=== PATIENT | male | born 1965 | race Caucasian/White ===

== ENCOUNTER → 2019-12-26 | Outpatient (CLI) | payer OTHER ==
[~2019-12-26] MED LIST: CETI10TA16 PO; OMEP20TA8 PO; OXYC1TAB15 PO
== END | disposition home or self-care (01) ==
LOC: LAB 13:51
PROVIDERS: ATTEND Surgery
DX: Z01.812 Encounter for preprocedural laboratory examination (principal); Z20.828 Contact with and (suspected) exposure to other viral communicable diseases; K42.9 Umbilical hernia without obstruction or gangrene
CPT/HCPCS: U0003-CS

== ENCOUNTER 2020-01-01 06:06 | Day surgery (SDC) | payer OTHER ==
[~2020-01-01] VITALS: Ht 190.5 cm; Wt 115.0 kg
[~2020-01-01 06:06] MED LIST changes: +ACETAMINOPHEN 500 MG TABLET PO PRN; -CETI10TA16 PO; -OMEP20TA8 PO; -OXYC1TAB15 PO
[2020-01-01] MEDS ORDERED: OMEP20TA8 PO (06:39)
[2020-01-01] MEDS ORDERED: CETI10TA16 PO (06:39)
[2020-01-01] MEDS ORDERED: LIDOCAINE 1% PF 2 ML VIAL. ID PRN (07:00)
[2020-01-01] MEDS ORDERED: MORPHINE SULFATE 2 MG/ML VIAL. IV PRN (07:00)
[2020-01-01] MEDS ORDERED: PROCHLORPERAZINE 10 MG/2 ML VIAL. IV PRN (07:00)
[2020-01-01] MEDS ORDERED: ONDANSETRON PF 4 MG/2 ML VIAL. IV PRN (07:00)
[2020-01-01] MEDS ORDERED: HYDROmorphone 2 MG/ML VIAL IV PRN (07:00)
[2020-01-01] MEDS ORDERED: fentaNYL PF VIAL 100 MCG/2 ML VIAL IV PRN ×2 (07:00)
[2020-01-01] MEDS ORDERED: IV RINGERS,LACTATED 1000ML 1,000 ML IV SCH (07:00)
[2020-01-01] MEDS ORDERED: ONDANSETRON PF 4 MG/2 ML VIAL. ONE (07:03)
[2020-01-01] MEDS ORDERED: LIDOCAINE 2% PF 5 ML VIAL. ONE (07:03)
[2020-01-01] MEDS ORDERED: fentaNYL PF VIAL 100 MCG/2 ML VIAL ONE ×2 (07:03→08:39)
[2020-01-01] MEDS ORDERED: DEXAMETHASONE SOD PHOS 20 MG/5 ML VIAL. ONE (07:03)
[2020-01-01] MEDS ORDERED: SUCCINYLCHOLINE 200 MG/10 ML VIAL. ONE (07:03)
[2020-01-01] MEDS ORDERED: ROCURONIUM 50 MG/5 ML VIAL. ONE (07:03)
[2020-01-01] MEDS ORDERED: PROPOFOL 10 MG/ML (20ML) VIAL. IV ONE (07:03)
[2020-01-01] MEDS ORDERED: MIDAZOLAM HCL/PF 2 MG/2 ML VIAL. ONE (07:04)
[2020-01-01] MEDS ORDERED: MINERAL OIL for SURGERY 10 ML VIAL. MC ONE (07:11)
[2020-01-01] MEDS ORDERED: BUPIVACAINE-EPI 0.5%-1:200000 MPF 30 ML VIAL. ONE (07:11)
[2020-01-01] MEDS ORDERED: GLYCOPYRROLATE 1 MG/5 ML VIAL. ONE (07:59)
[2020-01-01] MEDS ORDERED: KETOROLAC 30 MG/ML VIAL. ONE (08:18)
[2020-01-01] MEDS ORDERED: NEOSTIGMINE METHYLSULFATE 5 MG/5 ML SYRINGE. ONE (08:18)
[2020-01-01] MEDS ORDERED: SEVOFLURANE 61 TO 120 MINUTES. IH ONE (08:19)
--- NOTE | 2020-01-01 08:23 | PDOC4 ---
Operative Note Operative Note Date: 01/01/2020 at 820 Preoperative diagnosis: Umbilical hernia Postoperative diagnosis: Same Procedure: Robotic assisted laparoscopic medical hernia repair with mesh Surgeon: Joe Specimen: None Dictation: Patient is a 54-year-old gentleman is complained of a painful bulge at his umbilicus. Procedure of robotic assisted laparoscopic umbilical hernia repair with mesh was explained to the patient detail risk benefits were also discussed including bleeding infection injury to intra-abdominal contents possible necessitating further or open operations alternatives to this procedure also discussed with the patient who seemed to understand and gave both verbal and written consent to have the procedure performed. Patient was taken to the operating room placed in supine position general anesthesia was initiated once patient was sleeping intubated his abdomen was prepped and draped usual sterile fashion using ChloraPrep. An area in the left upper quadrant was injected with quarter percent Marcaine with epinephrine incision was made 11 blade scalpel and a 5 mm Visiport was placed under direct visualization into the abdomen creating a pneumoperitoneum abdomen was inspected with 5 mm scope no other abnormalities were noted other than umbilical hernia. 8 mm da Bridgett port was placed in the left midabdomen 8 mm da Bridgett port was placed in left lower abdomen and the 5 mm Visiport was changed out for 8 mm da Bridgett port. The da Bridgett robot was then brought and docked all port sites da Bridgett camera was placed within the abdomen grasper and Endo Renee scissors were also placed in the surgeon went to the robotic console using a grasper and Endo Renee scissors the peritoneum was incised reducing the hernia sac and contents. The hernia defect was then closed with a running 2 OV lock nonabsorbable suture. Ventral light ST mesh was then placed over the hernia defect this was sewn into place with a running 2 OV lock absorbable suture the peritoneum was then closed over the mesh with a running nonabsorbable 2 OV lock suture. The da Bridgett robot was undocked from all port sites the pneumoperitoneum was reduced all ports were removed port sites were all closed with 4-0 subcuticular Monocryl Mastisol Steri-Strips and island dressings were applied. Patient was awakened and extubated in the operating room taken to recovery in stable condition all sponge instrument needle counts listed as correct estimated blood loss 5 mL CHANDRIKA SAHA MD Jan 01, 2020 08:22
--- NOTE | 2020-01-01 08:24 | DISCH ---
DISCHARGE INSTRUCTIONS Condition on Discharge Condition on Discharge: Stable Activity After Discharge Activity Instructions for Disc: Avoid exertion Other activity instructions: No lifting more than 20 pounds for 2 weeks Diet after Discharge Diet after Discharge: Regular Wound Incision Care Other wound/incision instructi: April shower in 24 hours Contacting the after DC Call your doctor for: If your condition worsens Follow-Up Follow up with: Dr. Saha in 2 weeks CHANDRIKA SAHA MD Jan 01, 2020 08:24
[2020-01-01] MEDS ORDERED: OXYC1TAB15 PO (08:58)
[2020-01-01] MEDS ORDERED: oxyCODONE/APAP 5/325 1 TAB TABLET PO ONE (09:30)
[2020-01-01 09:32] VITALS: BP 132/62
== END 2020-01-01 10:12 | disposition home or self-care (01) ==
LOC: SURG 06:06 → EDUNIT# 07:30 → SURG 10:12
PROVIDERS: ATTEND Surgery
DX: K42.9 Umbilical hernia without obstruction or gangrene (principal); Z72.89 Other problems related to lifestyle; Z79.899 Other long term (current) drug therapy
CPT/HCPCS: 49652; C1781; J0330; J0690; J1100; J1885; J2250; J2405; J2704; J2710; J3010; J3490; S2900